=== PATIENT | male | born 1980 | race Caucasian/White ===

== ENCOUNTER 2019-08-21 21:12 | Emergency (ER) | payer BC ==
[~2019-08-21] VITALS: Ht 170.2 cm; Wt 77.1 kg
[2019-08-21 21:51] LABS: ABSOLUTE EOSINOPHILS 0.1 thou/uL (0.0-0.7); ABSOLUTE LYMPHOCYTES 1.4 thou/uL (0.8-5.3); ABSOLUTE MONOCYTES 0.4 thou/uL (0.0-1.2); ABSOLUTE NEUTROPHILS 3.9 thou/uL (1.6-8.1); BASOPHILS 0.6 %; EOSINOPHILS 1.3 %; HEMATOCRIT 41.4 % (42.0-52.0); HEMOGLOBIN 14.9 gm/dL (14.0-18.0); LYMPHOCYTES 24.6 %; MCH 32.6 pg (26.0-34.0); MCHC 35.9 g/dL (28.0-37.0); MCV 90.8 fL (80.0-100.0); MONOCYTES 7.1 %; MPV 7.4 fl. (7.2-11.1); NUCLEATED RBCS 0 /100WBC; PLATELET COUNT* 192 thou/uL (150-400); POLYS 66.4 %; RBC 4.56 mil/uL (4.50-6.00); WBC 5.9 thou/uL (4.0-11.0)
[2019-08-21 22:01] LABS: CALCIUM 8.7 mg/dL (8.5-10.1); CREATININE 1.1 mg/dL (0.6-1.3); POTASSIUM 4.4 mmol/L (3.5-5.1)
[2019-08-21 22:02] LABS: PROTIME 10.2 Seconds (9.20-11.50)
[2019-08-21 22:12] LABS: ALBUMIN 4.1 g/dL (3.4-5.0); TOTAL BILIRUBIN 0.8 mg/dL (<0.1-1.0); TOTAL PROTEIN 7.4 g/dL (6.4-8.2)
[2019-08-22 00:36] VITALS: BP 123/68
--- NOTE | 2019-08-22 09:49 | EKG ---
[place] [address] ELECTROCARDIOGRAM REPORT Name: JOSETTE VILLAR Room: [facility]#: [id number] Admission: 08/21/19 Attend Phys: Discharge: 08/22/19 Date of : 84 Date of Service: 08/21/192126 Report #: [id number] THIS REPORT FOR: //name// [facility] ED Test Date: 2019-08-21 Test Time: 21:27:11 Pat Name: JOSETTE VILLAR Department: Room: Gender: Speech Pathology Assistant: [place] : 1980 Requested By: Vesna Moralez Order Number: [id number] MD: Ayush Painting Measurements Intervals [place] Rate: 74 P: 31 AR: 134 QRS: -7 QRSD: 93 T: 25 QT: 391 QTc: 434 Interpretive Statements Sinus rhythm No previous ECG available for comparison Electronically Signed On 08-22-2019 9:48:22 CDT by Ayush Painting [email or web address] <ELECTRONICALLY SIGNED> By: Dorie Painting MD, [facility] 08/22/1946 26 26 Dorie Painting MD, [facility] /EPI
== END 2019-08-22 00:36 | disposition home or self-care (01) ==
LOC: M.ERS 21:12
PROVIDERS: Emergency Medicine
DX: R06.00 Dyspnea, unspecified (principal); R07.89 Other chest pain; F17.210 Nicotine dependence, cigarettes, uncomplicated